=== PATIENT | female | born 1975 | race Caucasian/White ===

== ENCOUNTER 2019-01-24 11:10 | Emergency (ER) | payer BC ==
[2019-01-24 11:33] VITALS: BP 150/76
[2019-01-24] MEDS ORDERED: Meclizine TAB* 12.5 MG PO ONE (12:03)
--- NOTE | 2019-01-24 12:07 | UC ---
Dizzy HPI HPI Summary: 43-year-old woman comes in with a chief complaint of dizziness. First episode was about 6 weeks ago. Occurs when she moves her head. It's becoming more frequent and more severe. She does have some rhinorrhea and nasal congestion. No ear pain. Also occurs when she is on her phone and bending over. Years ago she had vertigo on this reminds her vertigo. No focal weakness or numbness no difficulty with speech or vision. Patient's also had chest tightness for the last 3 days. She reports that she's had this chest tightness before when she works out or if she wears a sports bra that's not fitting well. She has not worked out recently. No shortness of breath no pedal edema no calf pain. She did recently travel in a car for 8 hours. She has no history of clotting disorders. She is not on any estrogen replacement or control. No calf pain or swelling. - History Of Current Complaint Chief Complaint: UCDizziness Stated Complaint: DIZZY/TIGHTNESSIN CHEST Time Seen by Provider: 01/24/19 11:23 Hx Last Menstrual Period: 12/28 Pain Intensity: 0 - Allergies/Home Medications Allergies/Adverse Reactions: Allergies Allergy/AdvReac Type Severity Reaction Status Date / Time No Known Allergies Allergy Verified 01/24/19 11:33 Home Medications: Home Medications Amoxicillin PO (*) [Amoxicillin 500 MG CAP*] 500 mg PO DAILY 01/24/19 [History Confirmed 01/24/19] PMH/Surg Hx/FS Hx/Imm Hx Previously Healthy: Yes - Surgical History Surgical History: Yes Surgery Procedure, Year, and Place: tonsillectomy - Family History Known Family History: Positive: Non-Contributory - Social History Alcohol Use: Rare Substance Use Type: None Smoking Status (MU): Former Smoker When Did the Patient Quit Smoking/Using Tobacco: age 25 Review of Systems All Other Systems Reviewed And Are Negative: Yes Constitutional: Positive: Other - SEE HPI Skin: Positive: Negative Eyes: Positive: Negative ENT: Positive: Nasal Discharge, Sinus Congestion Respiratory: Positive: Negative Cardiovascular: Positive: Chest Pain Gastrointestinal: Positive: Negative Motor: Positive: Negative Neurovascular: Positive: Negative Musculoskeletal: Positive: Negative Neurological: Positive: Negative Psychological: Positive: Negative Is Patient Immunocompromised?: No Physical Exam Triage Information Reviewed: Yes Appearance: Well-Appearing, No Pain Distress, Well-Nourished Vital Signs: Initial Vital Signs Temp 98.9 F 01/24/19 11:13 Pulse 58 01/24/19 11:13 Resp 14 01/24/19 11:13 BP 150/76 01/24/19 11:13 Pulse Ox 100 01/24/19 11:13 Vital Signs Reviewed: Yes Eyes: Positive: Conjunctiva Clear, Other: - PERRLA EOMI. There is trace nystagmus. With range of motion of the eyes the patient does feel dizzy. ENT: Positive: Pharynx normal, TMs normal Neck: Positive: Supple Respiratory: Positive: Lungs clear, Normal breath sounds, No respiratory distress Cardiovascular: Positive: RRR Musculoskeletal: Positive: Strength Intact, ROM Intact, No Edema - NO CALF TENDERNESS Neurological Exam: Normal Neurological: Positive: Other: - Normal finger to nose. Normal heel to sykes. No nystagmus at rest. No focal neurologic deficit. Psychological: Positive: Age Appropriate Behavior Skin Exam: Normal Diagnostics - EKG Cardiac Rate: NL - AT 1119 Cardiac Rhythm: Sinus: Normal - 67BPM Ectopy: None ST Segment: Normal Dizzy Course/Dx - Course Course Of Treatment: Patient's symptoms are consistent with vertigo. In clinic patient treated with meclizine. She had normal finger-nose and heel to sykes. She does not have the dizziness at rest. She has no focal neurologic deficit. The plan will be to treat with meclizine. EKG did not show any ischemic changes or ectopy. Patient reports this chest tightness is occurred in the past. She has no calf pain or calf tenderness she is not on any estrogens there is no family history or personal history of clotting disorder making her low risk for pulmonary embolus and deep venous thrombosis. Signs and symptoms of stroke and also pulmonary embolus and DVT were all discussed with the patient. Plan is to treat with meclizine as long as she improves she can follow up with her primary care doctor. If she worsens or does not improve with the dizziness or if her chest pain worsens or does not improve she needs to be further evaluated emergency department. - Differential Dx/Diagnosis Provider Diagnosis: Dizziness, Chest pain Discharge - Sign-Out/Discharge Documenting (check all that apply): Patient Departure All imaging exams completed and their final reports reviewed: No Studies - Discharge Plan Condition: Stable Disposition: HOME Prescriptions: Meclizine HCl [Motion Sickness Relief] 25 mg PO Q6HR PRN #20 tablet PRN Reason: Dizziness Patient Education Materials: Chest Pain (ED), Vertigo (ED), Dizziness (ED) Referrals: [facility] [Outside] Additional Instructions: FOLLOW UP WITH YOUR DOCTOR. GO TO THE EMERGENCY DEPARTMENT IF YOUR CONDITION DOES NOT IMPROVE OR WORSENS; PAIN, SHORTNESS OF BREATH, YOU FEEL ILL, WEAKNESS, NUMBNESS, DIFFICULTY WITH VISION OR SPEECH OR ANY QUESTIONS OR CONCERNS. - Billing Disposition and Condition Condition: STABLE Disposition: Home
== END 2019-01-24 12:42 | disposition home or self-care (01) ==
LOC: UCEAST 11:10
DX: R42 Dizziness and giddiness (principal); R07.9 Chest pain, unspecified
CPT/HCPCS: 93005; 99202; A9270-GY; G0463